=== PATIENT | male | born 1960 | race Caucasian/White ===

== ENCOUNTER 2019-11-16 01:06 | Outpatient (CLI) | payer OTHER, SELFPAY ==
[2019-11-16 19:29] LABS: SARS-CoV-2 RNA PCR Negative
== END 2019-11-16 01:07 | disposition home or self-care (01) ==
LOC: ANHCOVIDDT 01:06
PROVIDERS: PCP Family Medicine; Visit Provider Internal Medicine Gastroenterology
DX: Z01.818 Encounter for other preprocedural examination (principal); Z11.59 Encounter for screening for other viral diseases
CPT/HCPCS: 87635; C9803; U0003

== ENCOUNTER 2019-11-19 00:43 | Day surgery (SDC) | payer OTHER, SELFPAY ==
[2019-11-07 13:22] VITALS: BMI 29.9
--- NOTE | 2019-11-18 09:07 | WPDANESEPP ---
Anes - Eval Pre Procedure Procedure: Operation Date: 11/19/19 07:30 Proposed Procedures p Screening Colonoscopy - Jose Rivera MD Date/Time: 11/18/19 09:07 Pre Op Diagnosis: neoplasm screening Patient Data Age: 59 Gender: M Height: 1.83 m Weight: 100 kg Allergies Allergy/AdvReac Type Severity Reaction Status Date / Time No Known Allergies Allergy Verified 11/07/19 13:19 Home Medications Medication Instructions Recorded Confirmed Type benazepril 20 mg tablet 20 mg PO DAILY #90 tablet 08/29/19 11/07/19 Rx hydrochlorothiazide 12.5 mg tablet 12.5 mg PO DAILY #90 tablet 08/29/19 11/07/19 Rx rosuvastatin 20 mg tablet 20 mg PO DAILY #90 tablet 08/29/19 11/07/19 Rx peg 3350-electrolytes 236 240 ml PO Q10M #4000 ml 11/18/19 Rx gram-22.74 gram-6.74 gram-5.86 gram solution Patient hx anesthesia problems: none Family hx anesthesia problems: none PMFSH Past Medical History Medical History HTN (hypertension) Prostate cancer screening Screen for colon cancer Smoking history Family History Family History Mother Hypertension Grandparent Malignant neoplasm of prostate Social History Social History Smoking status: Current every day smoker Smoking end date: 08/31/19 Alcohol intake: current Gender identity (if verbalized by the patient): Male Exam Day of Procedure 11/18/19 09:07
[2019-11-19 06:15] VITALS: BP 149/95; PULSE 74; RESP 17; TEMP 36.9; O2SAT 100; BMI 28.0
[2019-11-19] MEDS: LACTATED RINGERS 1,000 ML 150 ML IV CONT (06:27)
--- NOTE | 2019-11-19 07:18 | WPDANESEPPF ---
Anes - Initial Pre Proc Eval Procedure: Operation Date: 11/19/19 07:30 Proposed Procedures p Screening Colonoscopy - Jose Rivera MD Date/Time: 11/19/19 07:18 Surgeon: Jose Rivera MD Pre Op Diagnosis: neoplasm screening Patient Data Age: 59 Gender: M Height: 6 ft Weight: 93.9 kg Last Vital Signs Temp 98.4 F 11/19/19 06:15 Pulse 74 11/19/19 06:15 Resp 17 11/19/19 06:15 BP 149/95 H 11/19/19 06:15 Pulse Ox 100 11/19/19 06:15 Allergies Allergy/AdvReac Type Severity Reaction Status Date / Time No Known Allergies Allergy Verified 11/07/19 13:19 Home Medications Medication Instructions Recorded Confirmed Type benazepril 20 mg tablet 20 mg PO DAILY #90 tablet 08/29/19 11/19/19 Rx hydrochlorothiazide 12.5 mg tablet 12.5 mg PO DAILY #90 tablet 08/29/19 11/19/19 Rx rosuvastatin 20 mg tablet 20 mg PO DAILY #90 tablet 08/29/19 11/19/19 Rx Patient hx anesthesia problems: none Family hx anesthesia problems: none PMFSH Past Medical History Medical History HTN (hypertension) Prostate cancer screening Screen for colon cancer Smoking history Family History Family History Mother Hypertension Grandparent Malignant neoplasm of prostate Social History Social History Smoking status: Current every day smoker Smoking end date: 08/31/19 Alcohol intake: current Gender identity (if verbalized by the patient): Male Anes - Eval Final PreProcedure Day of Procedure 11/19/19 07:18 Patient weight: overweight Heart: regular rate and rhythm Lungs: clear to auscultation Airway: Mallampati scale class II Neurological: alert and oriented Last oral intake: >/= 8 hours ASA classification: III Emergent: no Anesthetic plan: proceed Anesthesia type and monitoring: general GIVS and standard monitoring Informed Consent: The patient's anesthetic plan and its attendant risks and benefits were discussed with the patient/family/POA. Questions were solicited and answers provided to the satisfaction of the patient/family/POA.
--- NOTE | 2019-11-19 07:36 | PM.HPGS ---
History of Present Illness History of Present Illness Consent: Risks, benefits, and alternatives have been discussed and questions answered. Patient agrees to proceed with procedure. Chief complaint: neoplasm screening Narrative: Lamine De La Rosa is a 59 year old male here for screening colonoscopy Review of Systems Constitutional: Constitutional: Denies headache(s) and Denies weakness Eyes: Eyes: Denies blurry vision ENT: Reports Normal hearing present, Denies headache(s) and Denies neck pain Cardiovascular: Cardiovascular: Denies chest pain and Denies dyspnea Respiratory: Respiratory: Denies dyspnea Gastrointestinal: Gastrointestinal: Reports no additional gastrointestinal complaints Genitourinary: Genitourinary: Denies dysuria Musculoskeletal: Musculoskeletal: Denies neck pain Integumentary/Breasts: Skin/Breast: Denies dry skin Neurologic: Reports Normal hearing present, Denies headache(s) and Denies weakness Psychiatric: Psychiatric: Denies anxiety Endocrine: Endocrine: Denies change in body appearance Hematologic/Lymphatic: Hematologic/Lymphatic: Denies easy bleeding Allergic/Immunologic: Allergic/Immunologic: Denies urticaria PMFSH Past Medical History Medical History HTN (hypertension) Prostate cancer screening Screen for colon cancer Smoking history Family History Family History Mother Hypertension Grandparent Malignant neoplasm of prostate Social History Social History Smoking status: Current every day smoker Smoking end date: 08/31/19 Alcohol intake: current Gender identity (if verbalized by the patient): Male Meds Home Medications and Allergies Home Medications Medication Instructions Recorded Confirmed Type benazepril 20 mg tablet 20 mg PO DAILY #90 tablet 08/29/19 11/19/19 Rx hydrochlorothiazide 12.5 mg tablet 12.5 mg PO DAILY #90 tablet 08/29/19 11/19/19 Rx rosuvastatin 20 mg tablet 20 mg PO DAILY #90 tablet 08/29/19 11/19/19 Rx Allergies Allergy/AdvReac Type Severity Reaction Status Date / Time No Known Allergies Allergy Verified 11/07/19 13:19 Vital Signs Vital Signs - 24 hr 11/19/19 06:15 Temperature 98.4 F Pulse Rate 74 Respiratory Rate 17 Blood Pressure 149/95 H Pulse Oximetry 100 Exam Const: General: comfortable and no acute distress HENMT: General nose exam: Normal nares present Eyes: General: appearance normal, both eyes and all related structures Neck: Neck: no JVD Resp: Auscultation: clear to auscultation bilaterally Cardio: Rate: regular rate Rhythm: regular rhythm GI: Inspection: non-distended GI Palp: Yes Soft to palpation Skin: General skin exam: normal color Neuro: General: gait normal Speech: normal speech Extrem: General: normal to inspection Psych: Mental Status: mental status grossly normal Assessment and Plan Assessment and plan (1) Screen for colon cancer: Code(s): Z12.11 - Encounter for screening for malignant neoplasm of colon Status: Acute Assessment and Plan: will proceed with screening colonoscopy (2) Essential (primary) hypertension: Code(s): I10 - Essential (primary) hypertension Status: Acute
[2019-11-19 08:03] VITALS: BP 130/83; PULSE 69; RESP 22; O2SAT 99
[2019-11-19 08:13] VITALS: BP 130/87; PULSE 68; RESP 19; O2SAT 100
[2019-11-19 08:23] VITALS: BP 148/89; PULSE 66; RESP 20; O2SAT 100
== END 2019-11-19 08:30 | disposition home or self-care (01) ==
PROVIDERS: PCP Family Medicine; Visit Provider Internal Medicine Gastroenterology
PROC: 0DJD8ZZ Inspection of Lower Intestinal Tract, Via Natural or Artificial Opening Endoscopic (ICD-10-PCS; CPT 45378; principal; 2019-11-19 07:30)
DX: Z12.11 Encounter for screening for malignant neoplasm of colon (principal); D12.2 Benign neoplasm of ascending colon; D12.4 Benign neoplasm of descending colon; D12.5 Benign neoplasm of sigmoid colon; K57.30 Diverticulosis of large intestine without perforation or abscess without bleeding; I10 Essential (primary) hypertension; Z87.891 Personal history of nicotine dependence; Z79.899 Other long term (current) drug therapy
CPT/HCPCS: 45380; 88305; J2001; J2704; J7120

== ENCOUNTER 2020-06-06 07:57 | Outpatient (CLI) | payer OTHER, SELFPAY ==
--- NOTE | ~2020-06-06 | CT_ITS ---
EXAMINATION: CT sinus wo con DATE: 06/06/2020 08:16 INDICATION: Nasal polyp TECHNIQUE: Computed tomography (CT) of the paranasal sinuses was performed without contrast. Iterativ e reconstruction technique was employed. Exam dose: 210.88 mGy-cm total exam DLP. COMPARISON: None FINDINGS: There is minimal leftward bowing of the nasal septum. The nasal turbinates are prominent bu t relatively symmetric in size. There is margaret bullosa of both middle nasal turbinates. There is mild soft tissue thickening at the maxillary ostium and infundibulum bilaterally. There is minimal mucoperiosteal thickening of the frontal sinuses. There is patchy soft tissue thickening of the ethmoid air cells bilaterally. The maxillary and sphenoid sinuses are normally developed and aerated. The mastoid air cells are normally developed and aerated. Middle and inner ear apparatus appear unremarkable. 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 Reviewed, dictated and finalized at [facility] 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
== END 2020-06-06 07:58 | disposition home or self-care (01) ==
PROVIDERS: PCP Family Medicine; Visit Provider Nurse Practitioner Family
DX: J33.9 Nasal polyp, unspecified (principal); J32.9 Chronic sinusitis, unspecified; R93.0 Abnormal findings on diagnostic imaging of skull and head, not elsewhere classified
CPT/HCPCS: 70486

== ENCOUNTER → 2020-07-11 07:03 | Outpatient (CLI) | payer OTHER, SELFPAY ==
[2020-07-11 20:54] LABS: SARS-CoV-2 RNA PCR Negative
== END ==
PROVIDERS: PCP Family Medicine; Visit Provider Otolaryngology
DX: Z01.812 Encounter for preprocedural laboratory examination (principal); Z20.822 Contact with and (suspected) exposure to COVID-19
CPT/HCPCS: C9803; U0003; U0005

== ENCOUNTER 2020-07-11 09:17 | Outpatient (CLI) | payer OTHER, SELFPAY ==
--- NOTE | 2020-07-11 09:40 | ECG_ITS ---
Measurements Intervals [place] Rate: 63 P: 50 NV: 235 QRS: 57 QRSD: 97 T: 52 QT: 385 QTc: 396 Interpretive Statements SINUS RHYTHM WITH FIRST DEGREE AV BLOCK ABNORMAL ECG Electronically Signed On 07-11-2020 12:06:39 CDT by Marc Rivera D.O.
[2020-07-11 10:20] LABS: Anion Gap 4 mmol/L (8-16); Blood Urea Nitrogen 18 mg/dL (9-20); Calcium 9.4 mg/dL (8.4-10.2); Carbon Dioxide 31 mmol/L (22-30); Chloride 104 mmol/L (98-107); Estimated Glomerular Filt Rate > 60; Glucose 113 mg/dL (75-110); Potassium 4.2 mmol/L (3.4-5.0); Sodium 139 mmol/L (137-145)
== END 2020-07-11 09:18 | disposition home or self-care (01) ==
PROVIDERS: PCP Family Medicine; Visit Provider Anesthesiology
DX: I10 Essential (primary) hypertension (principal); Z01.818 Encounter for other preprocedural examination; I44.0 Atrioventricular block, first degree
CPT/HCPCS: 36415; 80048; 93005

== ENCOUNTER 2020-07-14 01:33 | Day surgery (SDC) | payer OTHER, SELFPAY ==
[2020-07-02 18:03] VITALS: BMI 29.0
--- NOTE | 2020-07-13 09:02 | PM.IMHP ---
H&P: HPI History of Present Illness Date/Time: 07/13/20 09:02 60 year old Male presents for planned surgical procedures. He reports no new changes in his symptoms or changes in his medical history. Chief Complaint: Chronic sinusitis septal deviation inferior turbinate hypertrophy margaret bullosa Review of Systems Constitutional: Constitutional: Denies fatigue, Denies fever(s) and Denies lethargy Eyes: Eyes: Denies blurry vision and Denies change in vision ENT: Reports as per HPI Cardiovascular: Cardiovascular: Denies chest pain Respiratory: Respiratory: Denies cough Endocrine: Endocrine: Denies fatigue Hematologic/Lymphatic: Hematologic/Lymphatic: Denies easy bleeding, Denies easy bruising and Denies lymphadenopathy Allergic/Immunologic: Allergic/Immunologic: Denies seasonal rhinorrhea [facility] Past Medical History Medical History BMI 28.0-28.9,adult BMI 29.0-29.9,adult BMI 30.0-30.9,adult HTN (hypertension) Prostate cancer screening Right ankle pain Screen for colon cancer Smoking history Tobacco abuse Family History Family History Mother Hypertension Tobacco abuse Grandparent Malignant neoplasm of prostate Father Heart disease Sibling No problems noted. 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 Gender identity (if verbalized by the patient): Male Spiritual care concerns: No Meds Home Medications and Allergies Home Medications Medication Instructions Recorded Confirmed Type amlodipine 2.5 mg tablet 2.5 mg PO DAILY #90 tablet 02/03/20 07/02/20 Rx benazepril 20 mg tablet 20 mg PO DAILY #90 tablet 02/03/20 07/02/20 Rx hydrochlorothiazide 12.5 mg tablet 12.5 mg PO DAILY #90 tablet 02/03/20 07/02/20 Rx rosuvastatin 20 mg tablet 20 mg PO DAILY #90 tablet 02/03/20 07/02/20 Rx prednisone 5 mg tablet 5 mg PO DAILY #14 tablet 07/01/20 07/02/20 Rx Allergies Allergy/AdvReac Type Severity Reaction Status Date / Time No Known Allergies Allergy Verified 06/10/20 08:07 Exam Const: General: cooperative, healthy appearing, comfortable, well developed and alert HENMT: Head: normal to inspection, normocephalic and atraumatic Ears: hearing grossly normal bilaterally, external ears normal, TM's normal bilaterally and EAC's normal General nose exam: Normal external nose present, Normal nares present, No nasal polyps present, mucous membranes and turbinates abnormal, abnormal septum and Other nasal findings present ( Septal deviation and inferior turbinate hypertrophy) Face and sinus: normal facial exam Mouth: Yes Normal oral and palatal mucosa present, Yes lip normal, Yes tongue normal, Yes oropharynx normal and Yes moist mucous membranes Teeth and gingiva: dentition normal and gingiva normal Throat: posterior oropharynx normal, tonsils normal and uvula midline Eyes: General: appearance normal, both eyes and all related structures Periorbital: periorbital findings normal Eyelids: eyelids normal Conjunctivae: conjunctivae normal Sclera: sclerae normal Neck: Neck: normal visual inspection, full ROM and no lymphadenopathy Thyroid: thyroid normal Lymphatic: no lymphadenopathy noted Resp: Effort & Inspection: normal respiratory effort and able to speak in complete sentences Cardio: Jugular venous distension: no JVD Neuro: Cranial nerves: Yes CN's
[2020-07-14] VITALS (11 sets, daily range): BP systolic 128–177; BP diastolic 78–98; PULSE 65–97; RESP 12–20; TEMP 36.3–36.6; O2SAT 95–100
--- NOTE | 2020-07-14 07:07 | WPDHPUPDATE1 ---
History and Physical Update Update Date/Time: 07/14/20 07:07 History and Physical has been reviewed, including an updated exam of the patient. There are NO changes in the patient's condition. Risks, benefits, and alternatives have been discussed and questions answered. Patient agrees to proceed with procedure.
--- NOTE | 2020-07-14 07:15 | WPDANESEPPF ---
Anes - Initial Pre Proc Eval Procedure: Operation Date: 07/14/20 08:30 Proposed Procedures p Image Guided, Endoscopic Maxillary Antrostomy, Total Ethmoidectomy, Frontal Sinus Sinusotomy, Sphenoidotomy, Bilateral Inferior Turbinectomy, Reconstruction Of Marjorie Bullosa, - Ramesh Ocasio MD s Septoplasty - Ramesh Ocasio MD Date/Time: 07/14/20 07:15 Surgeon: Ramesh Ocasio MD Pre Op Diagnosis: Chronic Sinusitis, Septal Deviation Patient Data Age: 60 Gender: M Height: 1.83 m Weight: 97 kg Allergies Allergy/AdvReac Type Severity Reaction Status Date / Time No Known Allergies Allergy Verified 06/10/20 08:07 Home Medications Medication Instructions Recorded Confirmed Type amlodipine 2.5 mg tablet 2.5 mg PO DAILY #90 tablet 02/03/20 07/02/20 Rx benazepril 20 mg tablet 20 mg PO DAILY #90 tablet 02/03/20 07/02/20 Rx hydrochlorothiazide 12.5 mg tablet 12.5 mg PO DAILY #90 tablet 02/03/20 07/02/20 Rx rosuvastatin 20 mg tablet 20 mg PO DAILY #90 tablet 02/03/20 07/02/20 Rx prednisone 5 mg tablet 5 mg PO DAILY #14 tablet 07/01/20 07/02/20 Rx Patient hx anesthesia problems: none Family hx anesthesia problems: none PMFSH Past Medical History Medical History BMI 28.0-28.9,adult BMI 29.0-29.9,adult BMI 30.0-30.9,adult HTN (hypertension) Prostate cancer screening Right ankle pain Screen for colon cancer Smoking history Tobacco abuse Family History Family History Mother Hypertension Tobacco abuse Grandparent Malignant neoplasm of prostate Father Heart disease Sibling No problems noted. 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 Gender identity (if verbalized by the patient): Male Sexual Orientation (if Verbalized by the Patient): Straight or Heterosexual Spiritual care concerns: No Anes - Eval Final PreProcedure Day of Procedure 07/14/20 07:15 Patient weight: overweight Heart: regular rate and rhythm Lungs: clear to auscultation and normal air movement Airway: Mallampati scale class II Neurological: alert and oriented Last oral intake: >/= 8 hours ASA classification: II Emergent: no Anesthetic plan: proceed Anesthesia type and monitoring: general ETT Informed Consent: The patient's anesthetic plan and its attendant risks and benefits were discussed with the patient/family/POA. Questions were solicited and answers provided to the satisfaction of the patient/family/POA.
[2020-07-14] MEDS: LACTATED RINGERS 1,000 ML 30 ML IV CONT ×2 (07:32→11:41)
[2020-07-14] MEDS: ACETAMINOPHEN 500 MG TABLET 1000 MG PO (07:33)
[2020-07-14] MEDS: OXYMETAZOLINE HCL 0.05% NAS 15 ML BTL (*BKC) 1 SPRAY NASAL (08:31)
[2020-07-14] MEDS: LIDO 1%/EPINEPHRINE 1:100,000 50 ML VIAL INFILTRATE (08:32)
--- NOTE | 2020-07-14 12:04 | PM.PROC ---
Procedure Note - Detailed Date of procedure: 07/14/20 Pre-op diagnosis: Chronic Sinusitis, Septal Deviation Inferior turbinate hypertrophy, nasal obstruction, bilateral margaret bullosa Post-op diagnosis: same Procedure performed: 1. Endoscopic assisted septoplasty 2. Inferior turbinate submucosal resection with outfracture 3. Bilateral endoscopic maxillary antrostomy 4. Bilateral frontal sinusotomies 5. Resection of bilateral margaret bullosa with middle turbinectomies 6. Bilateral total ethmoidectomies 7. Use of image guidance Description of procedure: The patient was correctly identified and consent was verified in the preoperative holding area. The patient was then brought to the operating room and a time-out was performed. General anesthesia was induced and endotracheal tube secured the patient's airway and taped to the left lower lip. The patient was then prepped and draped for the aforementioned procedures. Afrin-soaked pledgets were inserted in the bilateral nasal passages and allowed to sit for 5 minutes. There were then removed. Under endoscopic guidance 10 cc of 1% lidocaine with 1 100,000 parts epinephrine was injected deep to the submucoperichondrial plane of the bilateral nasal septum. A 15 blade was then utilized to perform a [place] incision. Bilateral nasal septal flaps were elevated. The deviated nasal septum or portions of it were then removed with a combination of endoscopic scissors Carol Ann forceps and Edy Fajardoton forceps. The bilateral middle turbinates were then removed following injection of 1% lidocaine with 1 100,000 parts epinephrine bilaterally within the middle turbinate. The stumps were cauterized and hemostasis was excellent. Maxillary antrostomies were then created using a backbiter straight through cut. All the aforementioned procedures were performed under image guidance as well. Care since as well as microdebrider with the quad cut were utilized to perform total ethmoidectomy. Of note extensive polyps were noted within the ethmoid cavities. A 70 degree scope was then utilized to perform frontal sinusotomies insuring that all of the frontal sinus cavities connected to a major outflow tract. Bilateral nasal passages were then suctioned and nova chuck packing was placed bilaterally. The inferior turbinates were injected with 1 cc of 1% lidocaine with 1 100,000 parts each. There were entered anteriorly using microdebrider turbinate blade and debride the submucosal plane excess and redundant mucosa specially posteriorly was debrided with quad cut micro debrider blade. The inferior turbinates were then cauterized using suction Bovie electrocautery to ensure adequate hemostasis. There were then outfractured using a [place] elevator. The [place] incision of the nasal septum was closed using 2 interrupted 5 0 fast gut sutures. Cruz splints were placed bilaterally and they were sutured anteriorly using a 3 0 interrupted excuse me mattressed nylon suture. Hemostasis was adequate following the procedure. I performed all dictated portions. Care the patient was turned over to Anesthesiology. Anesthesia: GETA Surgeon: Ramesh Ocasio MD Estimated blood loss (mL): 100 Drains: No Packing: No Pathology: none sent Complications: No immediate complications Condition: stable Disposition: PACU Findings: S shaped bilateral septal deviation, inferior turbinate hypertrophy, significant polypoid tissue in the ethmoid cavities, bilateral margaret bullosa inferior turbinate hypertrophy
[2020-07-14] MEDS: fentaNYL CITRATE INJ (*CRX) 100 MCG/2 ML VIAL 25 MCG IV PUSH ×4 (12:17→12:35)
[2020-07-14] MEDS: oxyCODONE HCL (*CRX) 5 MG TAB IR PO (13:15)
== END 2020-07-14 14:16 | disposition home or self-care (01) ==
PROVIDERS: PCP Family Medicine; Visit Provider Otolaryngology
PROC: (CPT 30520; 2020-07-14 08:30)
DX: J32.9 Chronic sinusitis, unspecified (principal); J34.2 Deviated nasal septum; J34.89 Other specified disorders of nose and nasal sinuses; J34.3 Hypertrophy of nasal turbinates; J33.8 Other polyp of sinus; F17.210 Nicotine dependence, cigarettes, uncomplicated
CPT/HCPCS: 30520; 30140; 31240; 31256; 31257; 61782; 36415; 80048; 93005; A9270; C9803; J0330; J1100; J2250; J2405; J2704; J3010; J7120; U0003; U0005

== ENCOUNTER 2020-07-27 06:32 | Emergency (ER) | payer OTHER, SELFPAY ==
[2020-07-27 06:38] VITALS: BP 156/94; PULSE 87; RESP 18; TEMP 37.5; O2SAT 100
--- NOTE | 2020-07-27 07:50 | ED.GENADULT ---
HPI - General Adult General Chief complaint: Unspecified Stated complaint: bloody nose since 0200 Time Seen by Provider: 07/27/20 07:01 History of Present Illness HPI narrative: Patient is a 60-year-old male who presents ER with epistaxis. Recently underwent sinus surgery on the right side. He has had some recurrent epistaxis is being managed by Dr. Ocasio. Patient has been using saline washes. Today after the bleeding started at 2 AM he sprayed some oxymetazoline into his nose. Upon evaluation in the ER bleeding has ceased. Patient reports due to bleeding he has had increased pressure in his ears and felt both of his ears pop but now is having a hard time hearing out of the left ear. Denies fevers or chills or sweats. No nausea or vomiting. He is not on any blood thinners. Related Data Allergies Allergy/AdvReac Type Severity Reaction Status Date / Time No Known Allergies Allergy Verified 07/27/20 06:42 Review of Systems Constitutional: Constitutional: Denies chills and Denies fever(s) ENT: Reports epistaxis Comments: Difficulty hearing left ear. Gastrointestinal: Gastrointestinal: Denies nausea, Denies vomiting and Denies hematemesis PMFSH Past Medical History Medical History BMI 28.0-28.9,adult BMI 29.0-29.9,adult BMI 30.0-30.9,adult HTN (hypertension) Prostate cancer screening Right ankle pain Screen for colon cancer Smoking history Tobacco abuse Family History Family History Mother Hypertension Tobacco abuse Grandparent Malignant neoplasm of prostate Father Heart disease Sibling No problems noted. 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 HEAD: Normocephalic, atraumatic. ENT: Mucous membranes moist. Red blood over the hard and soft palate. Normal posterior oropharynx without evidence of active bleed. Remnants of bleeding in the nostrils right greater than left. No active bleeding from the right side where patient reports problem. Tympanic membranes without evidence of large perforation and no blood noted. NEURO: Alert and oriented x3. PSYCH: Normal mood and affect. Course Course Emergency Course: Patient and family have been in contact with Dr. Ocasio. He will have them follow-up in office today. Patient had his nose irrigated well in the ER. He is free of active bleeding at this time. Vital Signs Vital signs: Vital Signs Temperature 99.5 F 07/27/20 06:38 Pulse Rate 87 07/27/20 06:38 Respiratory Rate 18 07/27/20 06:38 Blood Pressure 156/94 H 07/27/20 06:38 Pulse Oximetry 100 07/27/20 06:38 Temperature 99.5 F 07/27/20 06:38 Pulse Rate 87 07/27/20 06:38 Respiratory Rate 18 07/27/20 06:38 Blood Pressure 156/94 H 07/27/20 06:38 Pulse Oximetry 100 07/27/20 06:38 Medical Decision Making Vital Signs Vital Signs: Vital Signs Temperature 99.5 F 07/27/20 06:38 Pulse Rate 87 07/27/20 06:38 Respiratory Rate 18 07/27/20 06:38 Blood Pressure 156/94 H 07/27/20 06:38 Pulse Oximetry 100 07/27/20 06:38 Temperature 99.5 F 07/27/20 06:38 Pulse Rate 87 07/27/20 06:38 Respiratory Rate 18 07/27/20 06:38
[2020-07-27 08:02] VITALS: BP 138/90; PULSE 80; RESP 20; O2SAT 99
== END 2020-07-27 08:04 | disposition home or self-care (01) ==
PROVIDERS: Emergency Provider Emergency Medicine; PCP Family Medicine
DX: R04.0 Epistaxis (principal); I10 Essential (primary) hypertension; F17.210 Nicotine dependence, cigarettes, uncomplicated
CPT/HCPCS: 99281

== ENCOUNTER 2020-07-31 11:55 | Day surgery (SDC) | payer OTHER, SELFPAY ==
--- NOTE | 2020-07-31 11:53 | PM.IMHP ---
H&P: HPI History of Present Illness Date/Time: 07/31/20 11:53 60-year-old male status post sinus surgery 2.5 weeks ago. Right-sided epistaxis, unable to control in office. Presents for operative intervention. Reports no new symptoms or changes in medical history since this afternoon. Chief Complaint: Right-sided epistaxis Review of Systems Constitutional: Constitutional: Denies fatigue, Denies fever(s) and Denies lethargy Eyes: Eyes: Denies blurry vision and Denies change in vision ENT: Reports as per HPI Cardiovascular: Cardiovascular: Denies chest pain Respiratory: Respiratory: Denies cough Endocrine: Endocrine: Denies fatigue Hematologic/Lymphatic: Hematologic/Lymphatic: Denies easy bleeding, Denies easy bruising and Denies lymphadenopathy Allergic/Immunologic: Allergic/Immunologic: Denies seasonal rhinorrhea [facility] Past Medical History Medical History BMI 28.0-28.9,adult BMI 29.0-29.9,adult BMI 30.0-30.9,adult HTN (hypertension) Prostate cancer screening Right ankle pain Screen for colon cancer Smoking history Tobacco abuse Family History Family History Mother Hypertension Tobacco abuse Grandparent Malignant neoplasm of prostate Father Heart disease Sibling No problems noted. 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 Gender identity (if verbalized by the patient): Male Spiritual care concerns: No Meds Home Medications and Allergies Home Medications Medication Instructions Recorded Confirmed Type amlodipine 2.5 mg tablet 2.5 mg PO DAILY #90 tablet 02/03/20 07/31/20 Rx benazepril 20 mg tablet 20 mg PO DAILY #90 tablet 02/03/20 07/31/20 Rx hydrochlorothiazide 12.5 mg tablet 12.5 mg PO DAILY #90 tablet 02/03/20 07/31/20 Rx rosuvastatin 20 mg tablet 20 mg PO DAILY #90 tablet 02/03/20 07/31/20 Rx Allergies Allergy/AdvReac Type Severity Reaction Status Date / Time No Known Allergies Allergy Verified 07/27/20 10:45 Exam Const: General: cooperative, healthy appearing, comfortable, well developed and alert HENMT: Head: normal to inspection, normocephalic and atraumatic Ears: hearing grossly normal bilaterally, external ears normal, TM's normal bilaterally and EAC's normal General nose exam: Normal external nose present, nares abnormal, nasal polyps, mucous membranes and turbinates abnormal, abnormal septum and Other nasal findings present ( Rhino rocket in right blood in left) Face and sinus: normal facial exam Mouth: Yes Normal oral and palatal mucosa present, Yes lip normal, Yes tongue normal, Yes oropharynx normal and Yes moist mucous membranes Teeth and gingiva: dentition normal and gingiva normal Throat: posterior oropharynx normal, tonsils normal and uvula midline Eyes: General: appearance normal, both eyes and all related structures Periorbital: periorbital findings normal Eyelids: eyelids normal Conjunctivae: conjunctivae normal Sclera: sclerae normal Neck: Neck: normal visual inspection, full ROM and no lymphadenopathy Thyroid: thyroid normal Lymphatic: no lymphadenopathy noted Resp: Effort & Inspection: normal respiratory effort and able to speak in complete sentences Cardio: Jugular venous distension: no JVD Neuro: Cranial nerves: Yes CN's II-XII intact bilaterally Assessment and Plan Assessment and plan
[2020-07-31] MEDS: LACTATED RINGERS 1,000 ML 30 ML IV CONT (12:27)
--- NOTE | 2020-07-31 12:42 | P.PNAN_ITS ---
Anes - Initial Pre Proc Eval Procedure: Operation Date: 07/31/20 13:30 Proposed Procedures p Bilateral Nasal Endoscopy, - Ramesh Ocasio MD s Bilateral Nasal Cautery - Ramesh Ocasio MD Date/Time: 07/31/20 12:42 Surgeon: Ramesh Ocasio MD Pre Op Diagnosis: nose bleed Patient Data Age: 60 Gender: M Height: Weight: Allergies Allergy/AdvReac Type Severity Reaction Status Date / Time No Known Allergies Allergy Verified 07/27/20 10:45 Home Medications Medication Instructions Recorded Confirmed Type amlodipine 2.5 mg tablet 2.5 mg PO DAILY #90 tablet 02/03/20 07/31/20 Rx benazepril 20 mg tablet 20 mg PO DAILY #90 tablet 02/03/20 07/31/20 Rx hydrochlorothiazide 12.5 mg tablet 12.5 mg PO DAILY #90 tablet 02/03/20 07/31/20 Rx rosuvastatin 20 mg tablet 20 mg PO DAILY #90 tablet 02/03/20 07/31/20 Rx Patient hx anesthesia problems: none Family hx anesthesia problems: none PMFSH Past Medical History Medical History (Updated 07/31/20 @ 12:43 by Ben Calvo MD) BMI 28.0-28.9,adult BMI 29.0-29.9,adult BMI 30.0-30.9,adult HTN (hypertension) Mixed hyperlipidemia Prostate cancer screening Right ankle pain Screen for colon cancer Smoking history Tobacco abuse Family History Family History Mother Hypertension Tobacco abuse Grandparent Malignant neoplasm of prostate Father Heart disease Sibling No problems noted. 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 Questions were solicited and answers provided to the satisfaction of the patient/family/POA.
[2020-07-31] MEDS: ACETAMINOPHEN 500 MG TABLET 1000 MG PO (12:43)
[2020-07-31 12:49] VITALS: BP 113/71; PULSE 98; TEMP 37.3; O2SAT 100
[2020-07-31 13:14] LABS: Hematocrit 36.1 % (42.0-52.0); Hemoglobin 12.3 g/dL (14.0-18.0); Mean Corpuscular HGB Conc 34.1 g/dl (32-36); Mean Corpuscular Hemoglobin 33.7 pg (26-34); Mean Corpuscular Volume 98.9 fl (80-100); Mean Platelet Volume 8.8 fl (7.4-10.4); Platelet Count Result 318 k/mm3 (150-375); Red Blood Count 3.65 M/mm3 (4.6-6.20); Red Cell Distribution Width 12.5 % (11.5-14.5); White Blood Count 15.9 K/mm3 (4.5-10.0)
--- NOTE | 2020-07-31 13:14 | WPDHPUPDATE1 ---
History and Physical Update Update Date/Time: 07/31/20 13:14 History and Physical has been reviewed, including an updated exam of the patient. There are NO changes in the patient's condition. Risks, benefits, and alternatives have been discussed and questions answered. Patient agrees to proceed with procedure.
[2020-07-31] MEDS: OXYMETAZOLINE HCL 0.05% NAS 15 ML BTL (*BKC) 1 SPRAY NASAL (13:49)
[2020-07-31 14:20] VITALS: BP 124/78; PULSE 80; RESP 20; TEMP 36.9; O2SAT 100
--- NOTE | 2020-07-31 14:31 | PM.PROC ---
Procedure Note - Detailed Date of procedure: 07/31/20 Pre-op diagnosis: nose bleed Right sided epistaxis Post-op diagnosis: same Procedure performed: 1. Bilateral nasal endoscopy 2. Right-sided control of epistaxis 3. Right-sided SP ligation endoscopic Description of procedure: Preoperative hemoglobin was checked and noted to be 12.5. The patient was correctly identified and consent was verified in the preoperative holding area. The patient was then brought to the operating room and a time-out was performed. General anesthesia was induced and endotracheal tube was secured the patient's airway and taped to the left lower lip. The patient was then prepped and draped for the aforementioned procedure. The rhino rocket was removed from the right nasal passage. The bilateral nasal passages were suctioned of clots. The right middle turbinate stump had an artery that was pumping. This was cauterized with Bovie suction electrocautery at a setting of 15. The posterior septal branch was also noted to be bleeding this was also cauterized at a setting of 15. A straight through cut was utilized to a direct the right maxillary antrostomy further posteriorly. The sphenopalatine artery was then located with gentle dissection with the suction Bovie. This was cauterized and ligated with Bovie suction electrocautery. Hemostasis was noted to be excellent. Both nasal passages were again irrigated and suctioned clean. Of note there was significant polyp burden which is regrown in the past 3 weeks. I performed all dictated portions of the procedure. Care the patient was turned over to Anesthesiology. Anesthesia: GETA Surgeon: Ramesh Ocasio MD Estimated blood loss (mL): 20 Drains: No Packing: No Pathology: none sent Complications: No immediate complications Condition: stable Disposition: PACU Findings: Right bleeding middle turbinate artery from stump of middle turbinate cauterized excellent hemostasis following procedure
[2020-07-31 14:36] VITALS: BP 149/88; PULSE 73; RESP 12; O2SAT 100
[2020-07-31 14:50] VITALS: BP 145/87; PULSE 70; RESP 15; O2SAT 98
[2020-07-31 15:05] VITALS: BP 146/84; PULSE 71; RESP 16
[2020-07-31 15:35] VITALS: BP 124/81; PULSE 79; RESP 14
== END 2020-07-31 15:55 | disposition home or self-care (01) ==
PROVIDERS: PCP Family Medicine; Visit Provider Otolaryngology
PROC: (CPT 31241; principal; 2020-07-31 13:30)
PROC: (CPT 31241; 2020-07-31 13:30)
DX: R04.0 Epistaxis (principal); J33.9 Nasal polyp, unspecified; I10 Essential (primary) hypertension; E78.2 Mixed hyperlipidemia; F17.210 Nicotine dependence, cigarettes, uncomplicated; E66.9 Obesity, unspecified
CPT/HCPCS: 31241; 36415; 85027; A9270; J0330; J1100; J1170; J2250; J2405; J2704; J3010; J7120

== ENCOUNTER 2022-02-14 12:20 | Emergency (ER) | payer OTHER, BC, SELFPAY ==
[2022-02-14 13:07] VITALS: BP 151/92; PULSE 110; RESP 18; TEMP 38.5; O2SAT 100
--- NOTE | 2022-02-14 13:30 | ED.URI ---
HPI - URI/Sore Throat General Chief Complaint: Upper Respiratory Infection Stated Complaint: cough,chest congestion Time Seen by Provider: 02/14/22 13:15 Source: patient Mode of arrival: ambulatory Limitations: no limitations History of Present Illness HPI Narrative: Lamine is a 61-year-old male patient presenting to the clinic today with complaints of cough, body aches, sore throat, fever, headache, and chest congestion times 2 days he reports he went to work this morning and felt as though he cannot perform his duties and they sent him home. MD elicited complaint: fever, cough, sore throat, rhinorrhea, nasal congestion and other ( body aches) Related Data Allergies Allergy/AdvReac Type Severity Reaction Status Date / Time No Known Allergies Allergy Verified 02/14/22 13:15 Review of Systems Review of Systems: Pertinent positives per HPI. Patient denies any fever, chills, rash, headache, visual changes, dizziness, cough, shortness of breath, chest pain, palpitations, nausea, vomiting, diarrhea, constipation, abdominal pain, or any urinary issues. [facility] Past Medical History Medical History BMI 28.0-28.9,adult BMI 29.0-29.9,adult BMI 30.0-30.9,adult HTN (hypertension) Mixed hyperlipidemia Prostate cancer screening Right ankle pain Screen for colon cancer Smoking history Tobacco abuse Family History Family History Mother Hypertension Tobacco abuse Grandparent Malignant neoplasm of prostate Father Heart disease Sibling No problems noted. 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 There is no relevant family history pertinent to the patient complaint. Exam Narrative: General: Well-developed, well nourished, in no apparent distress Head: Normocephalic, atraumatic Eyes: Pupils equally round and reactive to light bilaterally, EOM intact, sclera and conjunctive clear, no discharge, lids normal Ears: TMs intact and clear, ear canals clear, no drainage, grossly hearing normal. Nose: Nares patent, clear nasal discharge, no inflammation, no sinus tenderness. Mouth: Oral pharynx without lesions or masses, good dentition, MMM. oropharynx red, postnasal drip Neck: Supple, trachea midline, no enlargement of anterior or posterior cervical nodes, no thyroid masses or goiter palpable. Cardio: Regular rate and rhythm, s1 and s2 normal, no murmur appreciated. Resp: Clear to auscultation bilaterally, no rhonchi, rales, wheezing or rubs Course Course Emergency Course: Portions of this record may have been created with voice recognition software. Level of Care: Express Care Visit Vital Signs Vital signs: Vital Signs Temperature 38.5 C H 02/14/22 13:07 Pulse Rate 110 H 02/14/22 13:07 Respiratory Rate 18 02/14/22 13:07 Blood Pressure 151/92 H 02/14/22 13:07 Pulse Oximetry 100 02/14/22 13:07 Oxygen Delivery Room Air 02/14/22 13:07 Temperature 38.5 C H 02/14/22 13:07 Pulse Rate 110 H 02/14/22 13:07 Respiratory Rate 18 02/14/22 13:07 Blood Pre
== END 2022-02-14 13:35 | disposition home or self-care (01) ==
PROVIDERS: Emergency Provider Nurse Practitioner Family; PCP Family Medicine
DX: J10.1 Influenza due to other identified influenza virus with other respiratory manifestations (principal); I10 Essential (primary) hypertension; E78.2 Mixed hyperlipidemia; F17.210 Nicotine dependence, cigarettes, uncomplicated
CPT/HCPCS: 87804; 99213; G0463

== ENCOUNTER → 2022-04-20 12:59 | Outpatient (CLI) | payer OTHER, SELFPAY ==
--- NOTE | ~2022-04-20 | XR_ITS ---
EXAMINATION: XR ankle RT min 3V DATE: 04/20/2022 13:27 INDICATION: Right ankle pain. TECHNIQUE: 4 views of right ankle were obtained. COMPARISON: None. FINDINGS: There is varus angulation at the ankle. No fracture. There is an osteochondral lesion of la teral talar dome. There is heterotopic ossification distal to medial and lateral malleoli. There is m ild midfoot osteoarthritis. There are enthesophytes at the posterior and plantar aspects of calcaneal tuberosity. IMPRESSION: 1. 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 Reviewed, dictated and finalized at location A. ISTRY DEPARTMENT CHAIR
== END ==
PROVIDERS: PCP Nurse Practitioner Family; Visit Provider Nurse Practitioner Family
DX: M19.071 Primary osteoarthritis, right ankle and foot (principal)
CPT/HCPCS: 73610

== ENCOUNTER 2022-05-28 08:01 | Emergency (ER) | payer OTHER, BC, SELFPAY ==
--- NOTE | 2022-05-28 08:08 | ED.GENADULT ---
HPI - General Adult General Chief complaint: Upper Respiratory Infection Stated complaint: cold symptoms Time Seen by Provider: 05/28/22 08:08 Source: patient Mode of arrival: ambulatory Limitations: no limitations History of Present Illness HPI narrative: 62-year-old male patient presents to the [facility] with complaints of cold symptoms that started yesterday. Patient states he has had sore throat, headaches, body aches, low-grade fevers and just overall not feeling well. Patient is an active smoker and smokes about a pack a day. Patient denies getting any vaccines for flu or COVID. Patient states he had influenza in January of 2022. Patient states he has been taking [id number] Aleve and ibuprofen his symptoms. Denies any chest pain, shortness of breath, abdominal pain, nausea, vomiting or diarrhea. Related Data Allergies Allergy/AdvReac Type Severity Reaction Status Date / Time No Known Allergies Allergy Verified 05/28/22 08:07 Review of Systems Review of Systems: CONSTITUTIONAL: Positive low-grade fever, positive body aches andchills, or sweats. EYES: Denies visual changes, redness, or discharge. ENT: positive rhinorrhea, congestion, sore throat, denies otalgia. CARDIOVASCULAR: Denies chest pain, palpitations, or edema. RESPIRATORY: Denies cough or dyspnea. GASTROINTESTINAL: Denies abdominal pain, nausea, vomiting, or diarrhea. GENITOURINARY: Denies dysuria or hematuria. SKIN: Denies rash or itching. MUSCULOSKELETAL: Denies back pain, joint pain, or myalgia. NEUROLOGIC: positive headache, denies numbness, or weakness. PSYCHIATRIC: Denies anxiety or depression. [facility] Past Medical History Medical History Acquired varus deformity of right ankle BMI 28.0-28.9,adult BMI 29.0-29.9,adult BMI 30.0-30.9,adult Chronic sinusitis Essential (primary) hypertension HTN (hypertension) Mixed hyperlipidemia Prostate cancer screening Rhinorrhea Right ankle pain Right ankle pain Right-sided epistaxis Screen for colon cancer Smoking history Tobacco abuse Traumatic arthritis of right ankle Surgical History Surgical History H/O sinus surgery Family History Family History Mother Hypertension Tobacco abuse Grandparent Malignant neoplasm of prostate Father Heart disease Sibling Esophageal cancer Sibling Tobacco abuse Social History Social History Smoking packs per day: 1 Smoking cigarettes per day: 20.0 Years smoked: 40 Smoking pack-years: 40.00 Smoking status: Current every day smoker Tobacco type: cigarettes Second hand tobacco smoke exposure: No Alcohol intake: current Drinks per week: 3 Substance use: never Substance use type: does not use Lack of Transportation: No Lack of Food: Never True Current Housing: I Have Housing Concerned About Future Housing: No Difficulty Paying Gas/Electric Bills: No Difficulty Paying for Meds: No Currently Unemployed: No Education: High School Diploma/GED Difficulty w/ Childcare or Family Care: No Living arrangements: with family Occupation/Education: occupation 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 There is no relevant family history pertinent to the presenting complaint. Exam Narrative: GENERAL: Well-appearing, well-nourished, and in no acute distress. HEAD: Normocephalic, atraumatic. EYES: PERRLA and EOMI. ENT: Nares with erythema and
[2022-05-28 08:14] VITALS: BP 129/76; PULSE 80; RESP 18; TEMP 36.6; O2SAT 100
== END 2022-05-28 08:58 | disposition home or self-care (01) ==
PROVIDERS: Emergency Provider Nurse Practitioner Family; PCP Family Medicine
DX: U07.1 COVID-19 (principal); F17.210 Nicotine dependence, cigarettes, uncomplicated; I10 Essential (primary) hypertension; E78.2 Mixed hyperlipidemia
CPT/HCPCS: 87081; 87426; 87804; 87880; 99213; C9803; G0463

== ENCOUNTER 2022-07-14 08:33 | Emergency (ER) | payer OTHER, BC, SELFPAY ==
[2022-07-14 08:39] VITALS: BP 142/90; PULSE 90; RESP 18; TEMP 36.6; O2SAT 100
--- NOTE | 2022-07-14 08:40 | ED.BACK ---
HPI - Back Pain/Injury General Chief Complaint: Back Pain/Injury Stated Complaint: Lower Back Pain Time Seen by Provider: 07/14/22 08:54 Source: patient, RN notes reviewed and old records reviewed Mode of arrival: ambulatory Limitations: no limitations History of Present Illness HPI Narrative: 62-year-old male presents to the [facility] with right lower back pain since last night. Pain is worse with changing of positions, sitting to standing and standing to sitting as well as twisting Denies any injury. Patient states that when he was twisting he felt a pull in the right lower back. No midline tenderness. No loss retention of bowel or bladder. No rashes, bruising noted. no saddle anesthesia. Walks with a normal gait. Denies any abdominal pain. No nausea vomiting or diarrhea. denies urinary symptoms. No radiation of pain. has taken ibuprofen. Denies any history of a back in Onset (ago): day(s) (1) Related Data Allergies Allergy/AdvReac Type Severity Reaction Status Date / Time No Known Allergies Allergy Verified 07/14/22 08:44 Review of Systems Review of Systems: All systems reviewed & are unremarkable except as noted in HPI and below Constitutional: Constitutional: Reports no additional constitutional complaints Eyes: Eyes: Reports no additional eye complaints ENT: Reports system reviewed and no additional complaints, except as documented Cardiovascular: Cardiovascular: Reports no additional cardiovascular complaints, Denies chest pain and Denies dyspnea Respiratory: Respiratory: Reports no additional respiratory complaints, Denies chest congestion, Denies cough and Denies dyspnea Gastrointestinal: Gastrointestinal: Reports no additional gastrointestinal complaints, Denies abdominal pain, Denies nausea and Denies vomiting Musculoskeletal: Musculoskeletal: Reports as per HPI and Reports back pain (Right lower) Integumentary/Breasts: Skin/Breast: Reports system reviewed and no additional complaints, except as docu Neurologic: Reports system reviewed and no additional complaints, except as documented Psychiatric: Psychiatric: Reports no additional psychiatric complaints Allergic/Immunologic: Allergic/Immunologic: Reports no additional allergic/immunologic complaints PMFSH Past Medical History Medical History Acquired varus deformity of right ankle BMI 28.0-28.9,adult BMI 29.0-29.9,adult BMI 30.0-30.9,adult Chronic sinusitis Essential (primary) hypertension HTN (hypertension) Mixed hyperlipidemia Prostate cancer screening Rhinorrhea Right ankle pain Right ankle pain Right-sided epistaxis Screen for colon cancer Smoking history Tobacco abuse Traumatic arthritis of right ankle Surgical History Surgical History H/O sinus surgery Family History Family History Mother Hypertension Tobacco abuse Grandparent Malignant neoplasm of prostate Father Heart disease Sibling Esophageal cancer Sibling Tobacco abuse Social History Social History Smoking packs per day: 1 Smoking cigarettes per day: 20.0 Years smoked: 40 Smoking pack-years: 40.00 Smoking status: Current every day smoker Tobacco type: cigarettes Second hand tobacco smoke exposure: No Alcohol intake: current Drinks per week: 3 Substance use: never Substance use type: does not use Lack of Transportation: No Lack of Food: Never True Current Housing: I Have Housing Concerned About Future Housing: No Difficulty Paying Gas/Electric Bills: No Difficulty Paying for Meds: No Currently Unemployed: No Education: High School Diploma/GED Difficulty w/ Childcare or Family Care: No Living arrangements: with family Occupation/Education: oc
== END 2022-07-14 09:13 | disposition home or self-care (01) ==
PROVIDERS: Emergency Provider Nurse Practitioner; PCP Family Medicine
DX: M54.50 Low back pain, unspecified (principal); F17.210 Nicotine dependence, cigarettes, uncomplicated; I10 Essential (primary) hypertension; E78.5 Hyperlipidemia, unspecified
CPT/HCPCS: 81003; 99213; G0463

== ENCOUNTER 2023-01-07 10:00 | Outpatient (CLI) | payer OTHER, BC, SELFPAY ==
--- NOTE | ~2023-01-07 | CT_ITS ---
EXAMINATION: CT sinus wo con DATE: 01/07/2023 10:34 INDICATION: Sinusitis. TECHNIQUE: Computed tomography (CT) of the paranasal sinuses was performed without intravenous contra st. The dose-length product was 318.31 mGy-cm. Automated exposure control and iterative reconstructio n technique were employed. COMPARISON: CT dated 06/06/2020 FINDINGS: There is moderate mucosal thickening of the maxillary, ethmoid sinuses. The frontal and sph enoid sinuses are pneumatized. Leftward nasal septal deviation. There are surgical changes consistent with resection of the ostiomeatal units bilaterally. No significant air-fluid level. There is mild m ucoperiosteal reaction of the maxillary sinuses. Mastoids are pneumatized. IMPRESSION: 1. Moderate sinusitis. Reviewed, dictated and finalized at location A. IMPRESSION: 1. Moderate sinusitis.
== END 2023-01-07 10:01 | disposition home or self-care (01) ==
LOC: ANHIMG 10:01
PROVIDERS: PCP Family Medicine; Visit Provider Otolaryngology
DX: J32.9 Chronic sinusitis, unspecified (principal); R44.8 Other symptoms and signs involving general sensations and perceptions
CPT/HCPCS: 70486

== ENCOUNTER 2023-01-25 11:22 | Outpatient (CLI) | payer OTHER, BC, SELFPAY ==
--- NOTE | ~2023-01-25 | XR_ITS ---
EXAMINATION: XR knee RT 3V DATE: 01/25/2023 11:48 INDICATION: Right knee pain TECHNIQUE: Three views of the right knee were obtained. COMPARISON: None. FINDINGS: Alignment is normal. No fracture or osteochondral lesion. There is moderate tricompartmenta l osteoarthritis. There is a small knee joint effusion. Calcified atherosclerosis is noted. There is infrapatellar soft tissue swelling of the anterior knee. IMPRESSION: 1. Osteoarthritis without acute osseous abnormality. Reviewed, dictated and finalized at location B. TH CARE SPECIALIST
--- NOTE | ~2023-01-25 | US_ITS ---
EXAMINATION: US venous doppler LE RT DATE: 01/25/2023 12:13 INDICATION: Right lower limb pain TECHNIQUE: Munoz scale images without and with compression and Doppler images of the right lower extre mity veins were obtained. COMPARISON: None FINDINGS: The right common femoral vein, profunda femoral vein, femoral vein, popliteal vein, peronea l trunk, posterior tibial veins, and greater saphenous vein are patent. IMPRESSION: 1. Patent right lower extremity veins. No evidence of deep venous thrombosis. Reviewed, dictated and finalized at location B. AL CARETAKER
== END 2023-01-25 11:23 | disposition home or self-care (01) ==
PROVIDERS: PCP Family Medicine; Visit Provider Nurse Practitioner Family
DX: M17.11 Unilateral primary osteoarthritis, right knee (principal); M79.89 Other specified soft tissue disorders
CPT/HCPCS: 73562; 93971

== ENCOUNTER 2023-02-23 05:19 | Emergency (ER) | payer OTHER, BC, SELFPAY ==
--- NOTE | ~2023-02-23 | XR_ITS ---
AP and oblique views of the right ribs, and PA and lateral chest radiograph Clinical History: Pain Findings: No rib fracture is seen. Osseous alignment is anatomic. Lungs are clear, without focal cons olidation or pleural effusion. Cardiomediastinal contour is within normal limits. Soft tissues are un remarkable. Impression: No rib fracture is seen. Clear lungs. Reviewed, dictated and finalized at location . 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 Clear lungs.
[2023-02-23 05:22] VITALS: BP 151/79; PULSE 87; RESP 15; TEMP 36.6; O2SAT 100
--- NOTE | 2023-02-23 05:23 | ECG_ITS ---
Measurements Intervals [place] Rate: 84 P: 54 SD: 204 QRS: 42 QRSD: 100 T: 50 QT: 358 QTc: 425 Interpretive Statements SINUS RHYTHM COMPARED TO ECG 07/11/2020 09:57:57 NO SIGNIFICANT CHANGES Electronically Signed On 02-23-2023 9:20:57 INSURANCE VERIFIER by Boo Cochran M.D.
[2023-02-23 06:11] VITALS: BP 140/79; PULSE 82; RESP 20; O2SAT 99
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
[2023-02-23] MEDS: ACETAMINOPHEN 500 MG TABLET 1000 MG PO (06:31)
[2023-02-23 07:46] VITALS: BP 139/78; PULSE 86; RESP 16; O2SAT 99
== END 2023-02-23 07:46 | disposition home or self-care (01) ==
PROVIDERS: Emergency Provider Emergency Medicine; PCP Family Medicine
DX: R07.81 Pleurodynia (principal); I10 Essential (primary) hypertension; E78.2 Mixed hyperlipidemia; F17.210 Nicotine dependence, cigarettes, uncomplicated; Z86.16 Personal history of COVID-19; V47.5XXA Car driver injured in collision with fixed or stationary object in traffic accident, initial encounter
CPT/HCPCS: 71046; 71100; 93005; 99283; A9270

== ENCOUNTER 2023-03-06 16:43 | Emergency (ER) | payer OTHER, BC, SELFPAY | END 2023-03-06 16:59 | disposition left against medical advice (07) | PROVIDERS: Emergency Provider Nurse Practitioner Family; PCP Family Medicine | DX: Z53.21 Procedure and treatment not carried out due to patient leaving prior to being seen by health care provider (principal) | CPT/HCPCS: 99199 ==

== ENCOUNTER 2025-02-21 01:58 | Day surgery (SDC) | payer BC, SELFPAY ==
[2025-01-31 10:44] VITALS: BMI 29.9
[2025-02-21 07:08] VITALS: BP 110/83; PULSE 83; RESP 20; TEMP 36.6; O2SAT 100; BMI 30.2
[2025-02-21] MEDS: LACTATED RINGERS 1,000 ML 150 ML IV CONT (07:28)
--- NOTE | 2025-02-21 08:19 | P.HP_ITS ---
History of Present Illness History of Present Illness Consent: Risks, benefits, and alternatives have been discussed and questions answered. Patient agrees to proceed with procedure. 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 Right ankle pain Rhinorrhea Right-sided epistaxis Chronic sinusitis Nasal polyp Recurrent sinusitis Tobacco abuse Right ankle pain Smoking history HTN (hypertension) Screen for colon cancer Prostate cancer screening Essential (primary) hypertension Mixed hyperlipidemia Surgical History Surgical History H/O sinus surgery Family History Family History Mother Hypertension Tobacco abuse Grandparent Malignant neoplasm of prostate Father Heart disease Sibling Esophageal cancer Sibling Tobacco abuse Social History Social History Smoking packs per day: 1 Smoking cigarettes per day: 20.0 Years smoked: 40 Smoking pack-years: 40.00 Smoking status: Current every day smoker Tobacco type: cigarettes Second hand tobacco smoke exposure: No Alcohol intake: current Drinks per week: 3 Substance use: never Substance use type: does not use Lack of Transportation: No Lack of Food: Never True Current Housing: I Have Housing Concerned About Future Housing: No Difficulty Paying Gas/Electric Bills: No Difficulty Paying for Meds: No Currently Unemployed: No Education: High School Diploma/GED Difficulty w/ Childcare or Family Care: No Living arrangements: with family Occupation/Education: occupation Additional occupation/education comments: [employer] Gender identity (if verbalized by the patient): Male Sexual Orientation (if Verbalized by the Patient): Straight or Heterosexual Spiritual care concerns: No Meds Home Medications and Allergies Home Medications ?Medication ?Instructions ?Recorded ?Confirmed ?Type rosuvastatin 20 mg tablet See Rx Instructions .Route 0 9/30/25 12/05/25 Rx .COMPLEX #90 tabs amlodipine 5 mg-valsartan 160 1 tablet PO DAILY #90 ta bs 01/27/25 02/21/25 Rx mg-hydrochlorothiazide 12.5 mg tablet Allergies Allergy/AdvReac Type Severity Reaction Status Date / Time No Known Allergies Allergy Verified 02/21/25 07:07 Vital Signs Vital Signs - 24 hr 02/21/25 07:08 Temperature 97.8 F Pulse Rate 83 Respiratory Rate 20 Blood Pressure 110/83 Pulse Oximetry 100 Oxygen Delivery Room Air Exam Const: General: comfortable and no acute distress HENMT: Face/Nose/Sinus: Normal nares present Eyes: General: appearance normal, both eyes and all related structures Resp: Auscultation: clear to auscultation bilaterally Cardio: Rate: regular rate Rhythm: regular rhythm GI: Inspection: non-distended GI Palp: Yes Soft to palpation Skin: General skin exam: normal color Extrem: General: normal to inspection Psych: Mental Status: mental status grossly normal Assessment and Plan Assessment and plan (1) Colon polyps: Qualifiers: Colon polyp type: adenomatous Colon location: ascending Qualified Code(s): D12.2 - Benign neoplasm of ascending colon Code(s): K63.5 - Polyp of colon Status: Acute Assessment and Plan: colonoscopy (2) Irritable bowel syndrome with diarrhea: Code(s): K58.0 - Irritable bowel syndrome with diarrhea Status: Acute
--- NOTE | 2025-02-21 08:33 | S_PTH ---
PATIENT: Lamine De La Rosa LOC: [facility]#:[id number] AGE/SX: 64/M ROOM: RE02/21/[address]: Jose Rivera MD : 1960 BED: DIS: 02/21/2025 SPEC #: [id number] RECD: 02/21/25 10:13 STATUS: NENO DOUGLASS #: [id number] NEW: 02/21/25 08:[address]: Jose Rivera DEPT: [facility] Surgical RECD BY: Letty Rodriguez ENTERED: 02/21/25 10:13 SP TYPE: Surgical OTHR DR: Francisco Ruiz MD Tissues: A - Colon Polypectomy B - Colon Biopsy Procedures: Hematoxylin and Eosin Stain Gross and Microscopic Level 4
[2025-02-21 08:35] VITALS: BP 97/55; PULSE 76; RESP 29; O2SAT 98
[2025-02-21 08:45] VITALS: BP 98/65; PULSE 82; RESP 24; O2SAT 97
[2025-02-21 08:55] VITALS: BP 118/73; PULSE 74; RESP 22; O2SAT 98
== END 2025-02-21 09:06 | disposition home or self-care (01) ==
PROVIDERS: PCP Family Medicine; Referring Provider Nurse Practitioner Family; Visit Provider Internal Medicine Gastroenterology
PROC: 0DJD8ZZ Inspection of Lower Intestinal Tract, Via Natural or Artificial Opening Endoscopic (ICD-10-PCS; CPT 45378; principal; 2025-02-21 08:30)
DX: Z12.11 Encounter for screening for malignant neoplasm of colon (principal); K63.5 Polyp of colon; K64.8 Other hemorrhoids; K57.30 Diverticulosis of large intestine without perforation or abscess without bleeding; K58.0 Irritable bowel syndrome with diarrhea; I10 Essential (primary) hypertension; E78.2 Mixed hyperlipidemia; M19.071 Primary osteoarthritis, right ankle and foot; J32.9 Chronic sinusitis, unspecified; F17.210 Nicotine dependence, cigarettes, uncomplicated; Z98.890 Other specified postprocedural states; Z80.42 Family history of malignant neoplasm of prostate; Z80.0 Family history of malignant neoplasm of digestive organs; Z82.49 Family history of ischemic heart disease and other diseases of the circulatory system
CPT/HCPCS: 45380; 88305; J2003; J2704; J7120